=== PATIENT | female | born 1980 | race African-American/Black ===

== ENCOUNTER 2017-09-27 23:36 | Emergency (ER) | payer OTHER ==
[2017-09-28 00:18] LABS: ABS Basophils 0.1 10^3/ul (0-0.2); ABS Eosinophils 0.2 10^3/ul (0-0.6); ABS Lymphocytes 2.2 10^3/ul (1.0-4.8); ABS Monocytes 0.5 10^3/ul (0-0.8); ABS Neutrophils 4.8 10^3/ul (1.5-7.7); ABS Nucleated RBC 0 10^3/ul; Eosinophil % 2.7 % (0-6); Hematocrit 38 % (35-47); Mean Corpuscular HGB Conc 34 g/dl (31-36); Mean Corpuscular Hemoglobin 29 pg (27-31); Mean Corpuscular Volume 85 fL (80-97); Mean Platelet Volume 7 um3 (7.4-10.4); Nucleated Red Blood Cells % 0; Platelet Count 244 10^3/ul (150-450); Red Blood Count 4.48 10^6/ul (4.0-5.4); Red Cell Distribution Width 13 % (10.5-15); White Blood Count 7.8 10^3/ul (3.5-10.8)
[2017-09-28 00:36] LABS: EGFR Non-African American 87.4 (>60)
[2017-09-28] MEDS ORDERED: metFORMIN* 500 MG TAB PO ONE (01:52)
[2017-09-28] MEDS ORDERED: Acetaminophen TAB* 325 MG PO ONE (02:31)
--- NOTE | 2017-09-28 02:50 | ED ---
Jace Randolph Tecjoon, scribed for Elfar, Abdul, MD on 09/28/17 at 0025 . GI/ HPI - HPI Summary HPI Summary: This patient is a 37 year old female presenting to [facility] accompanied by police with a chief complaint of . Patient states that she is seeking an . Patients last period was Aug 13. Patient has been 4 times previously. Patient is /A3. Before coming, patient states she has had vaginal bleeding for 3 days with no pain. [facility] because she [facility] an . Symptoms aggravated by nothing. Symptoms alleviated by nothing. Patient denies flank pain - History of Current Complaint Chief Complaint: EDOBProblems Time Seen by Provider: 09/27/17 23:49 Stated Complaint: OB PROBLEMS Hx Obtained From: Patient Hx Last Menstrual Period: August 13 Onset/Duration: Started Days Ago, Still Present Severity: Moderate Current Severity: Moderate Pain Intensity: 0 - /10 Associated Signs and Symptoms: Positive: Negative - flank pain, Other: - vaginal bleeding Aggravating Factor(s): Nothing Alleviating Factor(s): Nothing - Allergy/Home Medications Allergies/Adverse Reactions: Allergies Allergy/AdvReac Type Severity Reaction Status Date / Time No Known Allergies Allergy Verified 06/15/15 16:32 PMH/Surg Hx/FS Hx/Imm Hx Previously Healthy: No Endocrine/Hematology History: Reports: Hx Sickle Cell Disease, Other Endocrine/ Hematological Disorders - "sickel cell trait." Opthamlomology History: Denies: Hx Legally Blind EENT History: Denies: Hx Deafness - Immunization History Date of Tetanus Vaccine: unknown Infectious Disease History: No Infectious Disease History: Denies: Traveled Outside the US in Last 30 Days - Family History Known Family History: Negative: Hypertension - Social History Lives: With Family Alcohol Use: Occasionally Hx Substance Use: No Substance Use Type: Reports: None Hx Tobacco Use: Yes Smoking Status (MU): Current Some Day Smoker Review of Systems Negative: Fever Positive: other - vaginal bleeding. Negative: flank pain All Other Systems Reviewed And Are Negative: Yes Physical Exam - Summary Physical Exam Summary: VITAL SIGNS: Reviewed. GENERAL: Patient is a well-developed and nourished female who is lying comfortable in the stretcher. Patient is not in any acute respiratory distress. HEAD AND FACE: No signs of trauma. No ecchymosis, hematomas or skull depressions. No sinus tenderness. EYES: PERRLA, EOMI x 2, No injected conjunctiva, no nystagmus. EARS: Hearing grossly intact. Ear canals and tympanic membranes are within normal limits. MOUTH: Oropharynx within normal limits. NECK: Supple, trachea is midline, no adenopathy, no JVD, no carotid bruit, no c- spine tenderness, neck with full ROM. CHEST: Symmetric, no tenderness at palpation LUNGS: Clear to auscultation bilaterally. No wheezing or crackles. CVS: Regular rate and rhythm, S1 and S2 present, no murmurs or gallops appreciated. ABDOMEN: Soft, non-tender. No signs of distention. No rebound no guarding, and no masses palpated. Bowel sounds are normal. EXTREMITIES: FROM in all major joints, no edema, no cyanosis or clubbing. NEURO: Alert and oriented x 3. No acute neurological deficits. Speech is normal and follows commands. SKIN: Dry and warm Triage Information Reviewed: Yes Vital Signs On Initial Exam: Initial Vitals Temp Pulse Resp BP Pulse Ox 98.1 F 66 16 120/69 98 09/27/17 23:45 09/27/17 23:45 09/27/17 23:45 09/27/17 23:45 09/27/17 23:45 Vital Signs Reviewed: Yes Diagnostics - Vital Signs Vital Signs Temp Pulse Resp BP Pulse Ox 09/27/17 23:45 98.1 F 66 16 120/69 98 - Laboratory Lab Results: Lab Results 09/28/17 Range/Units 00:03 WBC 7.8 (3.5-10.8) 10^3/ul RBC 4.48 (4.0-5.4) 10^6/ul Hgb 13.0 (12.0-16.0) g/dl Hct 38 (35-47) % MCV 85 (80-97) fL MCH 29 (27-31) pg MCHC 34 (31-36) g/dl RDW 13 (10.5-15) % Plt Count 244 (150-450) 10^3/ul MPV 7 L (7.4-10.4) um3 Neut % (Auto) 61.6 (38-83) % Lymph % (Auto) 28.0 (25-47) % Smith % (Auto) 6.5 (1-9) % Eos % (Auto) 2.7 (0-6) % Baso % (Auto) 1.2 (0-2) % Absolute Neuts (auto) 4.8 (1.5-7.7) 10^3/ul Absolute Lymphs (auto) 2.2 (1.0-4.8) 10^3/ul Absolute Monos (auto) 0.5 (0-0.8) 10^3/ul Absolute Eos (auto) 0.2 (0-0.6) 10^3/ul Absolute Basos (auto) 0.1 (0-0.2) 10^3/ul Absolute Nucleated RBC 0 10^3/ul Nucleated RBC % 0 Result Diagrams: 09/28/17 00:03 09/28/17 00:03 Lab Statement: Any lab studies that have been ordered have been reviewed, and results considered in the medical decision making process. - Additional Comments Diagnostic Additional Comments: US Transvaginal reveals, per radiologist, IMPRESSION: Endometrial nodular densities with vascularity suggests the presence of endometrial polyps, or submucosal fibroids. No intrauterine gestation visualized. An ectopic cannot be entirely excluded. ED physician has reviewed this radiology report. GIGU Course/Dx - Course Course Of Treatment: This patient is a 37 year old female presenting to [facility] accompanied by police with a chief complaint of . Patient states that she is seeking an . US Transvaginal reveals, per radiologist, IMPRESSION : Endometrial nodular densities with vascularity suggests the presence of endometrial polyps, or submucosal fibroids. No intrauterine gestation visualized. An ectopic cannot be entirely excluded. ED physician has reviewed this radiology report. Bloodwork Obtained. Urinalysis Obtained. In the ED course the patient was given Metformin, Acetaminophen. Patients US did not show any IUP. Adnexa was normal. Patients beta hCG was slightly lower than the one she had approx. 12 hours ago. Patient has been bleeding for the last 3 days. Given the above information, patient most likely had a complete miscarriage. Patient does not have any pain. Patient will be discharged back to the correctional facility. The patient is recommended to repeat the beta hCG on Saturday and follow up with OBGYN in the correctional facility. The patient is agreeable with this plan. - Diagnoses Provider Diagnoses: Complete miscarriage, less likely ectopic Discharge - Discharge Plan Condition: Stable Disposition: LAW ENFORCEMENT/COURT Patient Education Materials: Miscarriage (ED) Referrals: Halie Montgomery MD [Primary Care Provider] - 09/30/17 Additional Instructions: The patient is recommended to repeat the beta hCG on Saturday and follow up with OBGYN on Saturday in the correctional facility. The patient is agreeable with this plan. Return to the ED for any increased pain or bleeding. The documentation as recorded by the Jace epperson Tecjoon accurately reflects the service I personally performed and the decisions made by , Syd Jessica MD.
[2017-09-28 03:05] VITALS: BP 113/61
--- NOTE | 2017-09-28 08:14 | RAD ---
HISTORY: Vaginal bleeding COMPARISONS: None relevant TECHNIQUE: Multiple transverse and longitudinal ultrasound images were obtained of the pelvis using grayscale and color Doppler imaging using the endovaginal transducer. FINDINGS: UTERUS: The uterus is normal in shape, size, contour, and echotexture. ENDOMETRIUM: The endometrium is heterogeneous measuring 1.1 cm in caliber.. There are rounded hypoechoic lesions of the endometrium measuring up to 1.4 cm in diameter. No pole or gestational sac is identified. CUL-DE-SAC: There is no free fluid within the cul-de-sac. RIGHT OVARY: The right ovary measures 4.7 x 3.9 x 3.2 cm. There is a thick-walled right ovarian cyst without hypervascularity. This measures 2.3 x 1.7 x 1.7 cm LEFT OVARY: The left ovary measures 3.4 x 1.5 x 3.3 cm. BLADDER: The bladder is not well visualized. OTHER: None IMPRESSION: 1. NO INTRAUTERINE GESTATION IS IDENTIFIED. IN THE PRESENCE OF A POSITIVE BETA HCG, THE DIFFERENTIAL INCLUDES EARLY INTRAUTERINE GESTATION, MISSED , OR ECTOPIC . RECOMMEND CORRELATION WITH SERIAL BETA-HCG LEVELS AND FOLLOW-UP EXAMINATION. 2. THE ENDOMETRIUM IS HETEROGENEOUS. THERE ARE HYPOECHOIC NODULAR LESIONS OF THE ENDOMETRIUM MEASURING UP TO 1.4 CM IN DIAMETER WHICH MAY REPRESENT ENDOMETRIAL POLYPS VERSUS PEDUNCULATED SUBMUCOSAL FIBROIDS. RECOMMEND ATTENTION ON FOLLOW-UP IMAGING. 3. COMPLEX RIGHT OVARIAN CYST, WITHOUT HYPERVASCULARITY, POSSIBLY AN INVOLUTING CORPUS LUTEUM RECOMMEND ATTENTION ON FOLLOW-UP IMAGING.
== END 2017-09-28 03:06 ==
LOC: ED 23:36
DX: O03.9 Complete or unspecified spontaneous abortion without complication (principal)
CPT/HCPCS: 36415; 76817; 80053; 84702; 85025; 86850; 86900; 86901; 99283; A9270-GY

== ENCOUNTER 2017-09-30 14:38 | Day surgery (SDC) | payer OTHER ==
[~2017-09-30 14:38] MED LIST: Ibuprofen TAB* 600 MG PO PRN; oxyCODONE/Acetamin 5/325 MG* TAB PO PRN
[2017-09-30] MEDS ORDERED: NS 0.9% 1000 ML* 1,000 ML IV ONE (15:18)
[2017-09-30 15:49] LABS: ABS Basophils 0.1 10^3/ul (0-0.2); ABS Eosinophils 0.2 10^3/ul (0-0.6); ABS Lymphocytes 1.4 10^3/ul (1.0-4.8); ABS Monocytes 0.4 10^3/ul (0-0.8); ABS Neutrophils 4.9 10^3/ul (1.5-7.7); ABS Nucleated RBC 0 10^3/ul; Eosinophil % 2.5 % (0-6); Hematocrit 38 % (35-47); Hemoglobin 12.9 g/dl (12.0-16.0); Lymphocyte % 20.3 % (25-47); Mean Corpuscular HGB Conc 34 g/dl (31-36); Mean Corpuscular Hemoglobin 29 pg (27-31); Mean Corpuscular Volume 85 fL (80-97); Mean Platelet Volume 7 um3 (7.4-10.4); Nucleated Red Blood Cells % 0.1; Platelet Count 244 10^3/ul (150-450); Red Blood Count 4.41 10^6/ul (4.0-5.4); Red Cell Distribution Width 13 % (10.5-15)
[2017-09-30 15:58] LABS: INR 0.97 (0.77-1.02)
[2017-09-30 16:09] LABS: EGFR Non-African American 94.7 (>60)
[2017-09-30] MEDS ORDERED: DOXYcycline IV* 100 MG in NS 0.9% 250 ML* 250 ML IVPB ONE (17:01)
[2017-09-30] MEDS ORDERED: DiMENhydriNATE IV* 50 MG/ML VIAL IV PUSH PRN (17:27)
[2017-09-30] MEDS ORDERED: Naloxone* 0.4 MG/ML 1 ML VIAL IV PRN (17:27)
[2017-09-30] MEDS ORDERED: PROCHLORPERAZINE INJ 5 MG/ML 2 ML VIAL IV PRN (17:27)
[2017-09-30] MEDS ORDERED: Levalbuterol 0.63MG/3ML NEB* UNIT OF USE INH PRN (17:27)
[2017-09-30] MEDS ORDERED: fentaNYL* 50 MCG/ML 2 ML VIAL (100 MCG VIAL) IV PRN (17:27)
[2017-09-30] MEDS ORDERED: Acetaminophen TAB* 325 MG PO PRN (17:27)
[2017-09-30] MEDS ORDERED: Buffered Lidocaine 0.9% SYRIN* 5 ML/SYR SYRINGE INTRADERM ONE (17:27)
[2017-09-30] MEDS ORDERED: fentaNYL* 50 MCG/ML 2 ML VIAL (100 MCG VIAL) ONE ×2 (17:49→20:19)
[2017-09-30] MEDS ORDERED: Midazolam* 1 MG/ML 2 ML VIAL (2 MG) ONE (17:49)
[2017-09-30] MEDS ORDERED: Lidocaine 2% PF * 5 ML VIAL ONE (18:59)
[2017-09-30] MEDS ORDERED: OXYTOCIN* 10 UNITS/ML 1 ML VIAL ONE (19:00)
[2017-09-30] MEDS ORDERED: Famotidine IV* 10 MG/ML 2 ML (20 mg) ONE (19:00)
[2017-09-30] MEDS ORDERED: Dexamethasone IV* 4 MG/ML 1 ML (4 MG) ONE (19:00)
[2017-09-30] MEDS ORDERED: Succinylcholine* 20 MG/ML 10 ML VIAL ONE (19:00)
[2017-09-30] MEDS ORDERED: Propofol* 10 MG/ML 20 ML BTL IV PUSH ONE (19:00)
[2017-09-30] MEDS ORDERED: diPHENhydraMINE IV* 50 MG/ML 1 ml VIAL (BENADRYL) ONE (19:02)
[2017-09-30] MEDS ORDERED: Desflurane* 240 ML INH ONE (19:17)
[2017-09-30] MEDS ORDERED: Lidocaine 1% INJ* 10 MG/ML 30 ML SDV ONE (19:18)
[2017-09-30] MEDS ORDERED: Mivacurium Chloride* 20 MG/10 ML VIAL IV ONE (19:31)
[2017-09-30] MEDS ORDERED: Bupivacaine 0.5% SDV PF* 10-30ML VIAL ONE (20:36)
[2017-09-30] MEDS ORDERED: Ondansetron INJ* 2 MG/ML VIAL ONE (20:58)
[2017-09-30] MEDS ORDERED: Ketorolac INJ* 30 MG/ML 1 ML VIAL ONE (20:58)
[2017-09-30] MEDS ORDERED: Acetaminophen TAB* 325 MG ONE (21:48)
--- NOTE | 2017-09-30 21:56 | ED ---
Richie Randolph Tiffany, scribed for Rita Calderon MD on 09/30/17 at 1551 . - HPI Summary HPI Summary: The patient is a 37 year old F BIB police to [facility] with vaginal bleeding. Patient is from [facility]. [facility] . [facility] informed [facility] that they cannot perform termination because may be ectopic so they referred her to the Emergency Department for further evaluation. Patients HCGs have gone down since her last visit to the ED on 09/28/17, per provider report. Patient had a transvaginal ultrasound on 09/28/17 while in ED. Ultrasound from then revealed 1. NO INTRAUTERINE GESTATION IS IDENTIFIED. IN THE PRESENCE OF A POSITIVE BETA HCG, THE DIFFERENTIAL INCLUDES EARLY INTRAUTERINE GESTATION, MISSED , OR ECTOPIC . RECOMMEND CORRELATION WITH SERIAL BETA-HCG LEVELS AND FOLLOW-UP EXAMINATION. 2. THE ENDOMETRIUM IS HETEROGENEOUS. THERE ARE HYPOECHOIC NODULAR LESIONS OF THE ENDOMETRIUM MEASURING UP TO 1.4 CM IN DIAMETER WHICH MAY REPRESENT ENDOMETRIAL POLYPS VERSUS PEDUNCULATED SUBMUCOSAL FIBROIDS. RECOMMEND ATTENTION ON FOLLOW- UP IMAGING. 3. COMPLEX RIGHT OVARIAN CYST, WITHOUT HYPERVASCULARITY, POSSIBLY AN INVOLUTING CORPUS LUTEUM RECOMMEND ATTENTION ON FOLLOW-UP IMAGING. Patient now reports that her vaginal bleeding has worsened since 09/28/17. Reports dark blood. Symptoms aggravated by nothing and alleviated by nothing. On day 2 of Flagyl called in by [facility]. Patient is A3. Consumed Brazilian fries and chicken sandwich at 12:00 today. - History of Current Complaint Chief Complaint: EDOBProblems Stated Complaint: HERE FOR EMERGENCY SURGERY Time Seen by Provider: 09/30/17 15:13 Hx Obtained From: Patient, Medical Records Chief Complaint: Vaginal Bleeding, Other: - pt requesting termination , clinical concern for ectopic Onset/Duration: Started Days Ago, Still Present Timing: Constant Severity: Moderate Current Severity: Moderate Location of Pain: None Aggravating Factors: Nothing Alleviating Factors: Nothing Associated Signs and Symptoms: Positive: Vaginal Bleeding or Discharge - Dark blood - Assessment Hx Now: Yes History of Ectopic : No - Allergies/Home Medications Allergies/Adverse Reactions: Allergies Allergy/AdvReac Type Severity Reaction Status Date / Time No Known Allergies Allergy Verified 06/15/15 16:32 Home Medications: Home Medications Ibuprofen TAB* [Motrin TAB* 600 MG] 600 mg PO Q8H PRN 09/30/17 [History Confirmed 09/30/17] Norethindrone [Agnes] 0.35 mg PO DAILY 09/30/17 [History Confirmed 09/30/17] PMH/Surg Hx/FS Hx/Imm Hx Previously Healthy: No Endocrine/Hematology History: Reports: Hx Sickle Cell Disease - Trait Sensory History: Denies: Hx Legally Blind, Hx Deafness Opthamlomology History: Denies: Hx Legally Blind - Surgical History Surgery Procedure, Year, and Place: Three previous abortions. LEEP procedure - Immunization History Date of Tetanus Vaccine: unknown Infectious Disease History: No Infectious Disease History: Denies: Traveled Outside the in Last 30 Days - Family History Known Family History: Positive: Other - Sickle cell Negative: Hypertension - Social History Lives: [facility] - incarcerated Alcohol Use: Occasionally Hx Substance Use: No Substance Use Type: Reports: None Hx Tobacco Use: Yes Smoking Status (MU): Current Some Day Smoker Review of Systems Negative: Fever Cardiovascular: Negative Respiratory: Negative Positive: other - Dark blood vaginal bleeding Skin: Negative Neurological: Negative Psychological: Normal All Other Systems Reviewed And Are Negative: Yes Physical Exam - Summary Physical Exam Summary: Appearance: 37 yo F accompanied by [facility] corrections personnel, no pain distress, Well-nourished Skin: Warm, color reflects adequate perfusion Head: Normal Head/Face inspection Eyes: Conjunctiva clear ENT: Normal inspection Neck: Supple, no nodes, no JVD. Respiratory: Lungs clear, Normal breath sounds, no respiratory distress Cardio: RRR, No murmur, pulses normal, brisk capillary refill Abdomen: soft, nontender Bowel sounds: present Musculoskeletal: Strength Intact/ ROM intact. No calf tenderness. No edema. Neuro: Alert, muscle tone normal, facial symmetry, speech normal, sensory/motor intact Psychological: Normal Pelvic exam deferred to Dr. Blevins who is present in the ED. - Physical Exam Triage Information Reviewed: Yes Vital Signs Reviewed: Yes Diagnostics - Vital Signs Vital Signs Temp Pulse Resp BP Pulse Ox 09/30/17 14:41 97.2 F 88 16 138/79 99 - Laboratory Lab Results: Lab Results 09/30/17 09/30/17 09/30/17 Range/Units 15:41 15:41 15:41 WBC 7.0 (3.5-10.8) 10^3/ul RBC 4.41 (4.0-5.4) 10^6/ul Hgb 12.9 (12.0-16.0) g/dl Hct 38 (35-47) % MCV 85 (80-97) fL MCH 29 (27-31) pg MCHC 34 (31-36) g/dl RDW 13 (10.5-15) % Plt Count 244 (150-450) 10^3/ul MPV 7 L (7.4-10.4) um3 Neut % (Auto) 69.6 (38-83) % Lymph % (Auto) 20.3 L (25-47) % Kenton % (Auto) 6.3 (1-9) % Eos % (Auto) 2.5 (0-6) % Baso % (Auto) 1.3 (0-2) % Absolute Neuts (auto) 4.9 (1.5-7.7) 10^3/ul Absolute Lymphs (auto) 1.4 (1.0-4.8) 10^3/ul Absolute Monos (auto) 0.4 (0-0.8) 10^3/ul Absolute Eos (auto) 0.2 (0-0.6) 10^3/ul Absolute Basos (auto) 0.1 (0-0.2) 10^3/ul Absolute Nucleated RBC 0 10^3/ul Nucleated RBC % 0.1 INR (Anticoag Therapy) 0.97 (0.77-1.02) APTT 29.6 (26.0-36.3) seconds Sodium 134 (133-145) mmol/L Potassium 4.0 (3.5-5.0) mmol/L Chloride 102 (101-111) mmol/L Carbon Dioxide 27 (22-32) mmol/L Anion Gap 5 (2-11) mmol/L BUN 16 (6-24) mg/dL Creatinine 0.70 (0.51-0.95) mg/dL Est GFR ( Amer) 121.8 (>60) Est GFR (Non-Af Amer) 94.7 (>60) BUN/Creatinine Ratio 22.9 H (8-20) Glucose 87 (70-100) mg/dL Lactic Acid (0.5-2.0) mmol/L Calcium 9.4 (8.6-10.3) mg/dL Total Bilirubin 0.60 (0.2-1.0) mg/dL AST 14 (13-39) U/L ALT 9 (7-52) U/L Alkaline Phosphatase 60 (34-104) U/L Total Protein 7.4 (6.4-8.9) g/dL Albumin 4.1 (3.2-5.2) g/dL Globulin 3.3 (2-4) g/dL Albumin/Globulin Ratio 1.2 (1-3) Beta HCG, Quant 60072.00 mIU/mL 09/30/17 Range/Units 15:41 WBC (3.5-10.8) 10^3/ul RBC (4.0-5.4) 10^6/ul Hgb (12.0-16.0) g/dl Hct (35-47) % MCV (80-97) fL MCH (27-31) pg MCHC (31-36) g/dl RDW (10.5-15) % Plt Count (150-450) 10^3/ul MPV (7.4-10.4) um3 Neut % (Auto) (38-83) % Lymph % (Auto) (25-47) % Kenton % (Auto) (1-9) % Eos % (Auto) (0-6) % Baso % (Auto) (0-2) % Absolute Neuts (auto) (1.5-7.7) 10^3/ul Absolute Lymphs (auto) (1.0-4.8) 10^3/ul Absolute Monos (auto) (0-0.8) 10^3/ul Absolute Eos (auto) (0-0.6) 10^3/ul Absolute Basos (auto) (0-0.2) 10^3/ul Absolute Nucleated RBC 10^3/ul Nucleated RBC % INR (Anticoag Therapy) (0.77-1.02) APTT (26.0-36.3) seconds Sodium (133-145) mmol/L Potassium (3.5-5.0) mmol/L Chloride (101-111) mmol/L Carbon Dioxide (22-32) mmol/L Anion Gap (2-11) mmol/L BUN (6-24) mg/dL Creatinine (0.51-0.95) mg/dL Est GFR ( Amer) (>60) Est GFR (Non-Af Amer) (>60) BUN/Creatinine Ratio (8-20) Glucose (70-100) mg/dL Lactic Acid 1.1 (0.5-2.0) mmol/L Calcium (8.6-10.3) mg/dL Total Bilirubin (0.2-1.0) mg/dL AST (13-39) U/L ALT (7-52) U/L Alkaline Phosphatase (34-104) U/L Total Protein (6.4-8.9) g/dL Albumin (3.2-5.2) g/dL Globulin (2-4) g/dL Albumin/Globulin Ratio (1-3) Beta HCG, Quant mIU/mL Result Diagrams: 09/30/17 15:41 09/30/17 15:41 Lab Statement: Any lab studies that have been ordered have been reviewed, and results considered in the medical decision making process. Re-Evaluation - Re-Evaluation First Eval Re-Evaluation Time: 15:20 - Pt chooses to have D & C with Dr. Blevins Change: Unchanged Course/Dx - Course Course Of Treatment: Allergies noted. High blood pressure noted. Patient medications reviewed this visit. Discussed patient care with Dr. Blevins (OBGYN ) at 15:15 who agreed to consult on patient care. Diff dx: miscarriage vs ectopic. Patient admitted to OBGYN for D&C. The patient is agreeable with this plan. - Differential Diagnosis/HQI/PQRI: Incomplete , Missed , Spontaneous , Ectopic - Diagnoses Provider Diagnoses: First-trimester bleeding, evaluation for ectopic - Provider Notifications Discussed Care Of Patient With: Joshua Blevins Time Discussed With Above Provider: 15:15 Instructed by Provider To: Other - Dr. Blevins (OBGYN) agreed to consult on patient care. Discharge - Discharge Plan Condition: Stable Disposition: ADMITTED TO [facility] documentation as recorded by the Richie epperson Tiffany accurately reflects the service I personally performed and the decisions made by , Rita Calderon MD.
[2017-09-30] MEDS ORDERED: oxyCODONE TAB* 5 MG TAB ONE (22:23)
[2017-09-30] MEDS: oxyCODONE TAB* 5 MG TAB PO PRN ×2 (22:24→22:25)
[2017-09-30 22:36] VITALS: BP 123/76
--- NOTE | 2017-10-01 16:21 | OP ---
DATE OF OPERATION: 09/30/17 - [facility] DATE OF : 82 SURGEON: Joshua Blevins MD ELEVATOR CONSTRUCTOR: None. ANESTHESIA: General endotracheal tube. PRE-OP DIAGNOSIS: Ectopic . POST-OP DIAGNOSIS: Right ectopic . OPERATIVE PROCEDURE: D and C, diagnostic laparoscopy, and right salpingectomy. ESTIMATED BLOOD LOSS: 50 cc. SPECIMEN: Includes right ectopic and decidua. FINDINGS: Non-frozen section of the D and C. There was no villi. Proceeded with diagnostic laparoscopy. Anterior bladder flap appeared normal. The cul-de -sac appeared normal. The left fallopian tube and ovary appeared normal. The right fallopian tube contained a right ectopic or distention consistent with that and the right ovary appeared normal. DESCRIPTION OF PROCEDURE: The patient identified, procedure identified as a D and C. The patient was taken to the operating room, prepped and draped in the usual fashion in the dorsal lithotomy position under general anesthesia. Two single-tooth tenaculums were advanced through the cervix. Cervix was easily dilated up to a #31 Rubin dilator. A suction curette was inserted and suction curettage performed. Scant tissue was obtained. This was sent down for frozen section to assess for an ectopic as this was her working diagnosis. At the time after 2 frozen sections, there was no villi identified and decision was made even though the patient had not been fully consented for a diagnostic laparoscopy. This was done given the significant risk of an ectopic . At that time, a small infraumbilical incision was made and a Veress needle inserted through this. The abdomen was insufflated to 15 mmHg. The Veress needle was removed and the trocar was inserted. The above findings were noted. A second trocar was placed 2-cm above the pubic symphysis in the midline under direct visualization. Once the ectopic was noted, 5-mm port that was placed initially in the umbilicus was replaced with a 10/12 blunt port and the 5 -mm was placed on the left abdominal side wall. Using the LigaSure, the right fallopian tube was grasped at the cornua and followed out to its fimbriated ends and cauterized at the mesosalpinx and the right ectopic was excised completely from the mesosalpinx. Once it was free, an EndoCatch bag was placed and the right ectopic was placed within the bag, brought out through the 10/12 incision with ease. At the end of the procedure, the scope was reinserted and a hemostatic site was noted. Good hemostasis was noted. All instruments removed from the abdomen. The abdomen was deflated of CO2. The umbilical incision was closed deeply using 0 Polysorb in a simple fashion through the deep tissues and then the skin was closed using 4-0 Vicryl in a subcuticular fashion and skin glue she was done on 5-mm port sites and the rest of the 10/12 mm site. Sponge and sponge stick removed from vagina and the patient returned to recovery room in stable condition. All sponge and instrument counts were correct. [id number]/[facility] #: [id number] [facility] MEDICAL CENTERJoselito
== END 2017-09-30 22:54 ==
LOC: ED 14:38 → OR 16:22 → EEVIPCON 16:22 → OR 22:54
PROVIDERS: ATTEND Internal Medicine Nephrology
DX: O00.101 Right tubal pregnancy without intrauterine pregnancy (principal); N93.9 Abnormal uterine and vaginal bleeding, unspecified; Z87.891 Personal history of nicotine dependence; Z68.37 Body mass index [BMI] 37.0-37.9, adult; F19.11 Other psychoactive substance abuse, in remission; N83.201 Unspecified ovarian cyst, right side
CPT/HCPCS: 36415; 80053; 83605; 84702; 85025; 85610; 85730; 88305; 88331; 88332; 99282; A9270-GY; J0330; J1100; J1200; J1885; J2250; J2405; J2590; J2704; J3010

== ENCOUNTER 2019-03-09 08:28 | Emergency (ER) | payer BC, OTHER ==
--- NOTE | 2019-03-09 08:59 | ED ---
Throat Pain/Nasal Congestion - HPI Summary HPI Summary: Pt. is a 38 y.o female who presents to the ER for redness, drainage and itching to bilateral eyes since yesterday. Pt. states symptoms started in left eye then spread to right. Denies sick contacts. Does not wear contact lenses. Denies injury or concern for FB. Otherwise denies fever, sore throat, cough. Sxs are mild in severity. No current modifying factors. - History of Current Complaint Chief Complaint: EDEyeProblem Time Seen by Provider: 03/09/19 08:37 Hx Obtained From: Patient - Allergies/Home Medications Allergies/Adverse Reactions: Allergies Allergy/AdvReac Type Severity Reaction Status Date / Time No Known Allergies Allergy Verified 03/09/19 08:33 PMH/Surg Hx/FS Hx/Imm Hx Previously Healthy: Yes Endocrine/Hematology History: Reports: Hx Sickle Cell Disease - Trait, Other Endocrine/Hematological Disorders - "sickel cell trait." Sensory History: Denies: Hx Contacts or Glasses, Hx Legally Blind, Hx Deafness Opthamlomology History: Denies: Hx Contacts or Glasses, Hx Legally Blind - Surgical History Surgery Procedure, Year, and Place: Three previous abortions. LEEP procedure - Immunization History Date of Tetanus Vaccine: unknown Infectious Disease History: No Infectious Disease History: Denies: Traveled Outside the [place] in Last 30 Days - Family History Known Family History: Positive: Other - Sickle cell Negative: Hypertension - Social History Alcohol Use: Rare Hx Substance Use: No Substance Use Type: Reports: None Hx Tobacco Use: Yes Smoking Status (MU): Light Every Day Tobacco Smoker Review of Systems Constitutional: Negative Negative: Fever, Chills Positive: Blurred Vision, Drainage, Erythema ENT: Negative Negative: Sore Throat, Ear Ache, Nasal Discharge Respiratory: Negative Negative: Cough Skin: Negative Neurological: Negative All Other Systems Reviewed And Are Negative: Yes Physical Exam Triage Information Reviewed: Yes Vital Signs On Initial Exam: Initial Vitals Temp Pulse Resp BP Pulse Ox 97.7 F 86 18 125/84 98 03/09/19 08:30 03/09/19 08:30 03/09/19 08:30 03/09/19 08:30 03/09/19 08:30 Vital Signs Reviewed: Yes Appearance: Positive: Well-Appearing - Pt. sitting on bed in NAD. Pleasant. Skin: Positive: Warm, Dry Head/Face: Positive: Normal Head/Face Inspection Eyes: Positive: Other: - Moderate injection to bilateral conjunctiva. Anterior chambers clear. EOMI with minimal discomfort. No surrounding erythema or edema. ENT: Positive: Pharynx normal, TMs normal Neck: Positive: Supple Neurological: Positive: Normal, CN Intact II-III Psychiatric: Positive: Affect/Mood Appropriate Diagnostics - Vital Signs Vital Signs Temp Pulse Resp BP Pulse Ox 03/09/19 08:30 97.7 F 86 18 125/84 98 - Laboratory Lab Statement: Any lab studies that have been ordered have been reviewed, and results considered in the medical decision making process. EENT Course/Dx - Course Course Of Treatment: Pt.'s exam consistant with conjunctivitis. Will start on polytrim drops. To f.u with pcp if sxs persist. Avoid touching eyes. Will return to ER if sxs change or worsen. Pt. understands and agrees with plan. - Differential Diagnoses Differential Diagnoses: Cellulitis, Conjunctivitis, Foreign Body - Diagnoses Provider Diagnoses: Conjunctivitis Discharge - Sign-Out/Discharge Documenting (check all that apply): Patient Departure Patient Received Moderate/Deep Sedation with Procedure: No - Discharge Plan Condition: Good Disposition: HOME Prescriptions: Polymyx/Trimethoprim OPTH* [Polytrim OPHTH*] 1 drop BOTH EYES Q3H 10 Days #1 btl Patient Education Materials: Conjunctivitis (ED) Referrals: Jg Smith MD [Primary Care Provider] - Additional Instructions: Follow up with PCP in 2-3 days if symptoms persist Use drops as directed Avoid touching/rubbing eyes Apply warm compresses to help with pain and discharge Return to ER if symptoms change or worsen - Billing Disposition and Condition Condition: GOOD Disposition: Home
[2019-03-09 09:02] VITALS: BP 114/78
== END 2019-03-09 09:02 | disposition home or self-care (01) ==
LOC: ED 08:28
DX: H10.33 Unspecified acute conjunctivitis, bilateral (principal); D57.1 Sickle-cell disease without crisis; F17.200 Nicotine dependence, unspecified, uncomplicated
CPT/HCPCS: 99282

== ENCOUNTER 2019-08-20 09:40 | Emergency (ER) | payer OTHER ==
--- NOTE | 2019-08-20 09:48 | UC ---
Dental HPI - HPI Summary HPI Summary: 38 yo female presents with dental pain. She tells me that about 1 week ago she had a filling come out of a right lower tooth. Since that time has had increasing pain. She called her dentist today and has an appointment for saturday , but they recommended she be seen today and placed on antibiotics in anticipation for the tooth to be pulled. Has been using oragel and taking ibuprofen with good relief. She is eating, drinking, and tolerating po well. Denies fever, chills. - History of Current Complaint Stated Complaint: TOOTH PAIN Time Seen by Provider: 08/20/19 09:48 Hx Obtained From: Patient Hx Last Menstrual Period: August 13 Onset/Duration: Gradual Onset Severity: Moderate Pain Intensity: 6 - Allergies/Home Medications Allergies/Adverse Reactions: Allergies Allergy/AdvReac Type Severity Reaction Status Date / Time No Known Allergies Allergy Verified 08/20/19 09:53 Home Medications: Home Medications Norethindrone [Agnes] 0.35 mg PO DAILY 08/20/19 [History Confirmed 08/20/19] PMH/Surg Hx/FS Hx/Imm Hx - Additional Past Medical History Additional PMH: None - Surgical History Surgical History: Yes Surgery Procedure, Year, and Place: Three previous abortions. LEEP procedure - Family History Known Family History: Positive: Other - Sickle cell Negative: Hypertension - Social History Occupation: Employed Full-time Lives: With Family Alcohol Use: Rare Substance Use Type: None Smoking Status (MU): Light Every Day Tobacco Smoker Household Exposure Type: Cigarettes Review of Systems All Other Systems Reviewed And Are Negative: No Constitutional: Positive: Negative Skin: Positive: Negative Eyes: Positive: Negative ENT: Positive: Dental Pain Respiratory: Positive: Negative Cardiovascular: Positive: Negative Gastrointestinal: Positive: Negative Neurological: Positive: Negative Psychological: Positive: Negative Physical Exam - Summary Physical Exam Summary: GENERAL: NAD. WDWN. No pain distress. SKIN: No rashes, sores, lesions, or open wounds. Throat: Posterior oropharynx without exudates, erythema, or tonsillar enlargement. Uvula midline. NECK: Supple. Nontender. No lymphadenopathy. CHEST: No accessory muscle use. Breathing comfortably and in no distress. NEURO: Alert. PSYCH: Age appropriate behavior. Triage Information Reviewed: Yes Vital Signs: Vital Signs: Temp Pulse Resp BP Pulse Ox 97.5 F 72 16 112/80 99 08/20/19 09:54 08/20/19 09:54 08/20/19 09:54 08/20/19 09:54 08/20/19 09:54 Vital Signs Reviewed: Yes Dental: Positive: Percussion Tenderness @ - Tooth #30, Gross Decay/Caries @ - throughout, Dental Fracture @ - Tooth #30. Negative: Abscess @, Cellulitis @, Cervical Lymphadenopathy, Bleeding Dental Complaint Course/Dx - Course Course Of Treatment: Tooth #[address] her on antibiotics for her upcoming dental visit. Refill for her ibuprofen and advised to keep using oragel as directed - Differential Dx/Diagnosis Provider Diagnosis: Pain, dental Discharge ED - Sign-Out/Discharge Documenting (check all that apply): Patient Departure All imaging exams completed and their final reports reviewed: No Studies - Discharge Plan Condition: Stable Disposition: HOME Prescriptions: Amoxicillin PO (*) [Amoxicillin 500 MG CAP*] 500 mg PO Q12H #14 cap Ibuprofen TAB* [Motrin TAB* 800 MG] 800 mg PO Q8H PRN #30 tab PRN Reason: Pain - Mild Patient Education Materials: Toothache (ED) Referrals: No Primary Care Phys,NOPCP [Primary Care Provider] - Additional Instructions: If you develop a fever, shortness of breath, chest pain, new or worsening symptoms - please call your PCP or go to the ED immediately. - Billing Disposition and Condition Condition: STABLE Disposition: Home
[2019-08-20 09:58] VITALS: BP 112/80
== END 2019-08-20 09:56 | disposition home or self-care (01) ==
LOC: UCEAST 09:40
DX: K08.89 Other specified disorders of teeth and supporting structures (principal); F17.210 Nicotine dependence, cigarettes, uncomplicated
CPT/HCPCS: 99212; G0463

== ENCOUNTER 2019-10-28 07:57 | Emergency (ER) | payer OTHER ==
[2019-10-28 08:15] VITALS: BP 122/74
--- NOTE | 2019-10-28 08:36 | UC ---
Dental HPI - HPI Summary HPI Summary: The patient is a 39-year-old female with the onset of right sided jaw pain and swelling that started YESTERDAY. The patient states that the swelling is near her tooth that she needs to have a root canal done on. She states that she has a temporary filling in that tooth. She states her pain is mild and less she touches her jaw. She has had fever. She denies any history of heart murmur or diabetes. - History of Current Complaint Chief Complaint: UCDentalProblem Stated Complaint: TOOTH PAIN Time Seen by Provider: 10/28/19 08:25 Hx Obtained From: Patient Hx Last Menstrual Period: 10/05/19 Onset/Duration: Gradual Onset, Lasting Hours Severity: Mild Pain Intensity: 0 - unless touched Pain Scale Used: Adult Non Verbal Aggravating Factor(s): Chewing Alleviating Factor(s): OTC Meds Related History: Swelling Dental: 1 - swollen gum - Allergies/Home Medications Allergies/Adverse Reactions: Allergies Allergy/AdvReac Type Severity Reaction Status Date / Time No Known Allergies Allergy Verified 10/28/19 08:04 Home Medications: Home Medications Norethindrone [Agnes] 0.35 mg PO DAILY 08/20/19 [History Confirmed 10/28/19] Ibuprofen TAB* [Motrin TAB*] 600 mg PO QID PRN #40 tab 10/28/19 [Rx] Penicillin VK 500 MG TAB(NF) [Penicillin VK 500 mg Tab] 500 mg PO QID #28 tab [Rx] PMH/Surg Hx/FS Hx/Imm Hx Previously Healthy: Yes - sickle cell trait - Surgical History Surgical History: Yes Surgery Procedure, Year, and Place: Three previous abortions. LEEP procedure - Family History Known Family History: Positive: Hypertension, Other - Sickle cell - Social History Alcohol Use: Rare Substance Use Type: None Smoking Status (MU): Light Every Day Tobacco Smoker Household Exposure Type: Cigarettes Review of Systems All Other Systems Reviewed And Are Negative: Yes Constitutional: Positive: Negative Skin: Positive: Negative Eyes: Positive: Negative ENT: Positive: Dental Pain Respiratory: Positive: Negative Cardiovascular: Positive: Negative Gastrointestinal: Positive: Negative Genitourinary: Positive: Negative Motor: Positive: Negative Neurovascular: Positive: Negative Musculoskeletal: Positive: Negative Neurological/Mental Status: Positive: Negative Psychological: Positive: Negative Physical Exam Triage Information Reviewed: Yes Appearance: Well-Appearing, No Pain Distress, Well-Nourished Vital Signs: Initial Vital Signs Temp 97.2 F 10/28/19 08:05 Pulse 74 10/28/19 08:05 Resp 18 10/28/19 08:05 BP 122/74 10/28/19 08:05 Pulse Ox 98 10/28/19 08:05 Vital Signs Reviewed: Yes Eyes: Positive: Conjunctiva Clear ENT: Positive: Hearing grossly normal, Pharynx normal, Dental tenderness, Uvula midline. Negative: Nasal congestion, Nasal drainage, Tonsillar swelling, Tonsillar exudate, Muffled voice Neck: Positive: Supple, Nontender, No Lymphadenopathy Respiratory: Positive: Lungs clear, Normal breath sounds, No respiratory distress, No accessory muscle use Cardiovascular: Positive: RRR, No Murmur Bowel Sounds: Positive: Present Musculoskeletal: Positive: ROM Intact, No Edema Neurological: Positive: Alert, Muscle Tone Normal Psychological Exam: Normal Skin Exam: Normal Images Head: 1 - swollen/tender Dental Complaint Course/Dx - Differential Dx/Diagnosis Provider Diagnosis: Dental abscess Discharge ED - Sign-Out/Discharge Documenting (check all that apply): Patient Departure All imaging exams completed and their final reports reviewed: No Studies - Discharge Plan Condition: Stable Disposition: HOME Prescriptions: Ibuprofen TAB* [Motrin TAB*] 600 mg PO QID PRN #40 tab PRN Reason: Pain Penicillin VK 500 MG TAB(NF) [Penicillin VK 500 mg Tab] 500 mg PO QID #28 tab Patient Education Materials: Dental Abscess (ED) Referrals: No Primary Care Phys,NOPCP [Primary Care Provider] - Additional Instructions: warm compresses recheck in 48 hours if not markedly improved see dentist when able - Billing Disposition and Condition Condition: STABLE Disposition: Home
== END 2019-10-28 08:43 | disposition home or self-care (01) ==
LOC: UCEAST 07:57
DX: K04.7 Periapical abscess without sinus (principal); F17.210 Nicotine dependence, cigarettes, uncomplicated; D57.3 Sickle-cell trait
CPT/HCPCS: 99212; G0463